=== PATIENT | female | born 1960 | race African-American/Black ===

== ENCOUNTER 2019-03-02 12:18 | Inpatient (IN) | payer OTHER, BC ==
[~2019-03-02] VITALS: Ht 160 cm; Wt 61.1 kg
--- NOTE | ~2019-03-02 | EKG ---
[facility] [place] [address] ELECTROCARDIOGRAM REPORT Name: INOCENCIO CERDA [facility] [id number] Admission: 03/02/19 Attend Phys: Mauricio Miner DO Discharge: Date of : 58 Report #: [id number] THIS REPORT FOR: //name// [facility] Test Date: 2019-03-02 Test Time: 16:15:30 Pat Name: INOCENCIO CERDA Department: Room: [facility] B Gender: F Rolling Machine Tender: Jesika RDZ : 1960 Requested By: Ian Patton Order Number: [id number] MD: Measurements Intervals [place] Rate: 64 P: 83 [place]: 197 QRS: 67 QRSD: 90 T: 52 QT: 414 QTc: 427 Interpretive Statements Sinus rhythm Consider left ventricular hypertrophy No previous ECG available for comparison [email or web address] By: [id number] 161 Sylvia Ward MD /EPI
[2019-03-02 12:19] VITALS: BP 147/84
[2019-03-02 12:50] LABS: ABSOLUTE NEUTROPHILS 2.2 thou/uL (1.4-8.2); BASOPHILS 0.9 % (0.0-2.0); EOSINOPHILS 2.3 % (0.0-3.0); HEMATOCRIT 37.6 % (37.0-47.0); HEMOGLOBIN 12.3 gm/dL (12.0-15.0); LYMPHOCYTES 40.9 % (24.0-44.0); MCH 32.1 pg (26.0-34.0); MCHC 32.7 g/dL (28.0-37.0); MCV 98.3 fL (80.0-100.0); MONOCYTES 10.6 % (1.0-8.0); PLATELET COUNT 208 thou/uL (150-400); POLYS 45.3 % (36.0-66.0); RBC 3.83 mil/uL (4.20-5.00); RDW 13.4 % (10.5-14.5); WBC 4.8 thou/uL (4.0-11.0)
[2019-03-02] MEDS ORDERED: ACETAMINOPHEN325 MG PO (12:55)
[2019-03-02] MEDS ORDERED: AMLODIPINE BESY10 MG PO (12:56)
[2019-03-02] MEDS ORDERED: CALCIUM500 MG PO (12:57)
[2019-03-02] MEDS ORDERED: NAMENDA 10 MG T10 MG PO (12:58)
[2019-03-02] MEDS ORDERED: VITAMIN D32000 UNIT PO (12:58)
[2019-03-02] MEDS ORDERED: ARICEPT10 M1 PO (12:58)
[2019-03-02] MEDS ORDERED: PRINIVIL10 MG PO (12:58)
[2019-03-02 13:01] LABS: ANION GAP 7 mmol/L (7-16); BUN 13 mg/dL (7-18); CALCIUM 9.8 mg/dL (8.5-10.1); CHLORIDE 107 mmol/L (98-107); CO2 30 mmol/L (21-32); CREATININE 1.2 mg/dL (0.6-1.0); GLUCOSE 89 mg/dL (74-106); POTASSIUM 3.7 mmol/L (3.5-5.1); SODIUM 144 mmol/L (136-145)
[2019-03-02 13:03] LABS: URINE BILIRUBIN NEGATIVE (Negative); URINE BLOOD NEGATIVE (Negative); URINE CLARITY CLEAR; URINE COLOR YELLOW; URINE GLUCOSE-RANDOM* NEGATIVE (Negative); URINE KETONES NEGATIVE (Negative); URINE LEUKOCYTES-REFLEX NEGATIVE (Negative); URINE NITRITE-REFLEX NEGATIVE (Negative); URINE PROTEIN (DIPSTICK) NEGATIVE (Negative); URINE SPECIFIC GRAVITY 1.015 (1.005-1.035); URINE UROBILINOGEN 0.2 E.U./dl (0.2-1.0)
[2019-03-02 13:11] LABS: ALBUMIN 3.9 g/dL (3.4-5.0); MAGNESIUM 2.2 mg/dL (1.8-2.4); SGOT 16 U/L (15-37); SGPT 21 U/L (30-65); TOTAL BILIRUBIN 0.8 mg/dL (<0.1-1.0); TOTAL PROTEIN 7.6 g/dL (6.4-8.2); TROPONIN-I <0.06 ng/mL (<0.06)
[2019-03-02 13:15] LABS: AMP/METHAMP Negative (Negative); BARBITURATES Negative (Negative); BENZODIAZEPINES Negative (Negative); COCAINE Negative (Negative); METHADONE Negative (Negative); OPIATES Negative (Negative); PCP Negative (Negative)
[2019-03-02 15:12] VITALS: BP 146/101
--- NOTE | 2019-03-02 17:49 | NUR ---
BLACK FEMALE ARRIVED ON THE UNIT IN W/C, STABLE. PT. IS NOT TALKING, BUT OCCASIONALLY WITH ONE WORK ANSWERS. SHE IS HERE FROM [facility]. SHE HAS DEMENTIA AND HAS LIVED IN [facility] FOR SEVERAL YEARS. SHE DOES NOT SPEAK MUCH. ONLY A SINGLE WORD HERE OR THERE. HER DPOA, YUKI AGUAYO, WAS CALLED. SHE IS A FAMILY FRIEND AND STATES SHE HAS KNOWN THE PATIENT FOR MANY YEARS. YUKI PROVIDED MUCH OF THE INFORMATION. FROM TIME TO TIME SHE WILL STRIKE OUT AT OTHER PATIENTS, UNPROVOKED. SHE IS COMBATIVE AT TIMES WITH STAFF. YUKI STATED SHE IS "PRE-DIABETIC", AND HAS HTN AND CHRONIC KIDNEY DISEASE. SINCE BEING ON THE UNIT SHE HAS WANDERED AROUND AIMLESSLY. DR. KAPOOR AND PINA Laird BOTH EXAMINED THE PATIENT. SHE IS HARD TO MEDICATE SHE WILL SPIT OUT HER MEDICATIONS. HER PRIMARY PHYSICIAN IS DR. JIMMY EG AT [phone]. SHE HAS A SON AND A BROTHER, BUT BOTH HAVE NOT BEEN INVOLVED IN HER CARE.
[2019-03-02 19:42] VITALS: BP 162/82
--- NOTE | 2019-03-03 02:07 | NUR ---
Care assumed of patient at 1915: Patient sitting in dayroom at start of shift. Patient isolative and sitting to self. Nurse attempted to speak with patient. Patient looked at nurse with perplexed look initially. Declined to answer any questions. Patient offered a snack in which she verbalized "yes" that she wanted one. Patient took HS medication without difficulty. Cooperative with physical assessment. No aggression or agitation shown. Patient then kept retiring to her room but stood over roomate instead of laying in her bed. Patient disoriented as to which bed was hers. Nurse then started to speak to patient in which she verbalized that she was tired and wanted to go to bed. Patient required simple one step directions repeated several times to her. Patient had much difficulty understanding nurse. It took approximately 10 minutes for patient to walk to her bed then lay down in her bed. Once patient did, she was able to fall asleep quickly and has been sleeping since. Patient is able to verbalize immediate needs/wants as she did so this evening.
[2019-03-03 08:21] VITALS: BP 149/87
--- NOTE | 2019-03-03 09:03 | NUR ---
PT WONDERS AROUND UNIT, INTRUSIVE WITH OTHER STAFF AND RESIDENTS. PT DIDN'T SPEAK MUCH. PT DID TAKE MEDS WITH VERBAL COACHING. PT LAUGHED AT TV AND OTHER STAFF MEMBERS. ASKED PT IF LIGHT IN DINING ROOM IS TOO BRIGHT SHE STATED YES.
[2019-03-03 09:40] VITALS: BP 149/89
--- NOTE | 2019-03-03 10:25 | NUR ---
ADM VIT D MED PT HELD MED IN HAND AND DIDN'T TAKE HERSELF, HAD TO PUT MEDS BACK IN CUP AND PUT IN HER MOUTH AND PT TOOK WATER WITH IT.
--- NOTE | 2019-03-03 12:59 | EKG ---
[place] [address] [facility] [place] [address] ELECTROCARDIOGRAM REPORT Name: INOCENCIO CERDA Room #: 523A-A ADM IN M.R.#: [id number] Admission: 03/02/19 Attend Phys: Mauricio Miner DO Discharge: Date of : 58 Report #: [id number] THIS REPORT FOR: //name// [facility] ED Test Date: 2019-03-02 Test Time: 12:52:01 Pat Name: INOCENCIO CERDA Department: Room: [facility] Gender: F Dental Chairside Assistant: . : 1960 Requested By: Ian Patton Order Number: [id number] MD: Ravindra Torres Measurements Intervals [place] Rate: 71 P: 85 VT: 197 QRS: 79 QRSD: 94 T: 52 QT: 406 QTc: 442 Interpretive Statements Sinus rhythm Poor R wave progression No previous ECG available for comparison Electronically Signed On 03-03-2019 12:59:14 CREDIT REPRESENTATIVE by Ravindra Torres [email or web address] <ELECTRONICALLY SIGNED> By: Ravindra Torres MD, [facility] 03/03/19 1259 1252 1252 Ravindra Torres MD, FACC /EPI
--- NOTE | 2019-03-03 13:03 | EKG ---
[facility] [address] [place] [address] ELECTROCARDIOGRAM REPORT Name: INOCENCIO CERDA Room #: 523A-A ADM IN M.R.#: [id number] Admission: 03/02/19 Attend Phys: Mauricio Miner DO Discharge: Date of : 58 Report #: [id number] THIS REPORT FOR: //name// [facility] Test Date: 2019-03-02 Test Time: 16:15:30 Pat Name: INOCENCIO CERDA Department: Room: [facility] B Gender: F Pipeline Welder: Jesika RDZ : 1960 Requested By: Ian Patton Order Number: [id number] MD: Ravindra Torres Measurements Intervals [place] Rate: 64 P: 83 [place]: 197 QRS: 67 QRSD: 90 T: 52 QT: 414 QTc: 427 Interpretive Statements Sinus rhythm Consider left ventricular hypertrophy No previous ECG available for comparison Electronically Signed On 03-03-2019 13:03:21 ADDICTIONS RECOVERY SPECIALIST by Ravindra Torres [email or web address] <ELECTRONICALLY SIGNED> By: Ravindra Torres MD, [facility] 03/03/19 1303 1615 1615 Ravindra Torres MD, FACC /EPI
--- NOTE | 2019-03-03 14:01 | NUR ---
PT HAD INCONT. OF URINE. HAD TO HELP PT BACK TO ROOM AND PROMPT HER TO SIT ON TOILET. PT BRIEF WAS INCON. PT ALSO HAD SMALL BM. PT BRIEF CHANGED AND NEW PANTS ON. PT WAS DANCING EARLIER IN DINING ROOM TO MUSIC.
--- NOTE | 2019-03-03 15:47 | NUR ---
LEENA contacted pt's MELLISSA Brown. No answer. Lft msg asking for a return call. SW team will continue to follow pt during her stay on this unit.
[2019-03-03 19:30] VITALS: BP 108/73
[2019-03-03 20:06] VITALS: BP 108/73
--- NOTE | 2019-03-04 01:30 | NUR ---
PATIENT WAS UP SITTING IN DINING ROOM TONIGHT. PATIENT IS QUIET AND ANSWERED YES AND NO QUESTIONS WHEN ASKED. OTHER TIMES SHE JUST STARED. PATIENT IS INCONTINENT AND HAD BM WHILE SITTING IN DINING ROOM. SHE DOES AMBULATE AND IS STEADY ON HER FEET. PATIENT DENIES PAIN. PATIENT TOOK HER MEDS WHOLE TONIGHT WITHOUT ISSUE. PATIENT COOPERATIVE. SHE IS ASSIST X 1 FOR CARES. PATIENT DID NOT UNDERSTAND SIMPLE COMMANDS FOR ADL'S SUCH TAKE PANTS DOWN OR OFF. PATIENT HAD TO BE ASSISTED WITH ADL'S.
[2019-03-04 07:51] VITALS: BP 112/85
[2019-03-04 08:00] VITALS: BP 112/85
--- NOTE | 2019-03-04 09:00 | NUR ---
PT SITTING IN DINING ROOM EATING BREAKFAST. PT ABLE TO TAKE MEDS WHOLE WITH MED CUP HELD UP TO MOUTH. PT UNDERSTANDS WHAT STAFF IS SAYING AND LAUGHS OR SAYS YEAH. PT LIKES TO DANCE TO MUSIC. PT IS INCON OF URINE OR STOOL AND NEEDS ENCOURAGED FOR ADL'S.
[2019-03-04 19:47] VITALS: BP 115/84
--- NOTE | 2019-03-05 00:39 | NUR ---
PATIENT ALERT AND ORINENTED. PATIENT IS ABLE TO ANSWER YES/NO QUESTIONS. PATIENT HAD A FLAT AFFECT, POOR EYE CONTACT, FAIR GROOMING AND HYGIENE. PATIENT WAS CALM AND COOPERATIVE WITH MEDS AND CARE. PATIENT IN BED ASLEEP AT THIS TIME BREATHING REGULAR AND UNLABOURED.
[2019-03-05 09:26] VITALS: BP 116/86
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
[2019-03-05 20:26] VITALS: BP 95/61
--- NOTE | 2019-03-06 01:49 | NUR ---
ASSUMED CARE FROM DAY SHIFT PT SITTING WATCHING TV IN DAYROOM, CALM COOPERATIVE , NON VERBAL WHICH ATTEMPTED TO TALK TO PT. PT WAS WILLING TO TAKE PO HS MEDICATIONS AND ATE HS SNACK. PT THEN WALKED BACK TO ROOM AND CLIMB INTO BED AND FEL ASLEEP. BED ALARM PLACED ON FOR SAFETY, FREQ CHECKS PER PROTOCOL, WILL CONINUTE WITH CURRENT PLAN OF CARE AND WILL REPORT CHANGES OR ABNORMAL FINDINGS.
[2019-03-06 09:23] VITALS: BP 108/76
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
--- NOTE | 2019-03-06 11:42 | NUR ---
LEENA received a call from pt's DPANKUSH Brown who said she works nights so that is why she has not been in touch. LEENA provided Stephanie an update including that pt was due to return either Wednesday or Wednesday. She said she personally has never known pt to be aggressive, and is glad she will be returning home. LEENA contacted the [facility] and spoke with Teresa. She said Katie arranges discharges. She asked LEENA to fax updates to [phone]. LEENA faxed updates. LEENA team will follow pt during her stay on this unit.
--- NOTE | 2019-03-06 15:54 | NUR ---
LEENA spoke with Katie who said they can transport pt for discharge on 03/08/2019 at 1300. She asked that LEENA fax a signed medication list on 03/07 so she can have pt's haldol filled before pt arrives. LEENA team will continue to follow pt during her stay on this unit.
--- NOTE | 2019-03-06 19:19 | NUR ---
Up ambulating around unit without s/o distress. No verbalizations, behaviors suggestive of SI/HI. Occassionally states a few words but typically does not respond to questions. Alerts to name. Breath sounds clear t/o, bilaterally equal. Reg HR auscultated. Color pink with brisk capillary refill and palpable peripheral pulses. Active bowel sounds over soft, flat abdomen. White flaky rash over face with one circular 2 cm lesion below R ear similar to ringworm but without any erythema. 1830 Eating with assistance of DYE BECK REEL OPERATOR mostly d/t she becomes distracted and loses focus. Took meds crushed in pudding without difficulty. Pictures taken of rash per request of Dr. Miner who consulted with wound physician. Rash cleaned with NS. Clotrimazole applied.
[2019-03-06 19:50] VITALS: BP 127/83
--- NOTE | 2019-03-07 04:03 | NUR ---
ASSUMED CARE OF THIS PATIENT AR 1900 FOR THE ORTHOPEDIC NURSE PRACTITIONER. SHE HAS BEEN IN DAYROOM WITH PEERS, SOMETIMES PACING ABOUT, BUT NOT IN AN AGITATED MANNER. MEDS WERE TAKEN CRUSHED. NO AGITATION OR AGGRESSIVE BEHAVIORS THIS SHIFT. COOPERATIVE WITH ASSESSMENT PROCESS. WILL ANSWER CLOSED ENDED QUESTIONS. CO C/O. NO APPARENT DISTRESS. WILL CONTINUE TO MONITOR
--- NOTE | 2019-03-07 12:08 | NUR ---
AT 0710 ASSUMED CARE OF PATIENT ON 03/07/19. PATIENT OBSERVED IN DAYROOM SITTING ON COUCH WITH EYES CLOSED. AT 0730 BLOOD SUGAR 98. DENIES PAIN, WHEN ASKED ABOUT PAIN PATIENT STATES"NO". PATIENT DOES NOT ANSWER ANY OTHER QUESTIONS CONTINUES TO STARE AT NUTRITION TECH. AT 0800 PATIENT WANDERING THE HALLS THEN SITS AT TABLE FOR BREAKFAST. MEDS TAKEN CRUSHED IN PUDDING. FACE CLEANED WITH WASHCLOTH THEN OINTMENT APPLIED TO FACE AND FOREHEAD. PATIENT SITTING ON COUCH WATCHING TV AT THIS TIME.
--- NOTE | 2019-03-07 12:27 | NUR ---
LEENA faxed a signed med sheet to Katie with the [facility]. [facility]EENA team will continue to follow pt during her stay.
[2019-03-07 15:07] VITALS: BP 153/93
[2019-03-07 19:55] VITALS: BP 97/60
--- NOTE | 2019-03-08 03:18 | NUR ---
ASSUMED CARE OF THIS PATIENT AT 1900. CONTINUES TO PACE CONTINUALLY. WILL ANSWER YES/NO QUESTIONS, BUT UNABLE TO CARRY ON A CONVERSATION. COMPLIANT WITH ALL MEDS AND CARES. NO APPARENT DISTRESS. NO C/O. WILL CONTINUE TO MONITOR
--- NOTE | 2019-03-08 07:30 | NUR ---
ASSUMED CARE OF PATIENT THIS AM. PATIENT AWAKE AND WALKING IN THE MILEU. PATIENTS AFFECT FLAT. PATIENT AMBULATES WITHOUT ASSISTANCE. PATIENT TAKES MEDICATIONS CRUSHED IN APPLESAUCE. PATIENT DENIES PAIN. PATIENT CALM AND COOPERATIVE. PATIENTS ASSESSMENT SHOWS CLEAR BREATH SOUNDS, ACTIVE BOWEL SOUNDS, AND S1 S2 HEARD FAINTLY.
[2019-03-08 08:00] VITALS: BP 100/79
[2019-03-08 08:54] VITALS: BP 100/79
[2019-03-08 09:26] VITALS: BP 100/79
[2019-03-08] MEDS ORDERED: HALOPERIDOL 1 MG1 MG PO (12:50)
[2019-03-08] MEDS ORDERED: LISINOPRIL10 MG PO (12:50)
[2019-03-08] MEDS ORDERED: VITAMIN D325 MCG PO (12:53)
[2019-03-08] MEDS ORDERED: CLOTRIMAZOLE-BE15 GM TOP (12:53)
--- NOTE | 2019-03-08 13:30 | NUR ---
PATIENT DISCHARGED AT 1330. PATIENT TAKEN TO [facility] VIA WHEELCHAIR. PATIENTS BELONGINGS AND DISCHARGE PAPERWORK SENT WITH PLANOGRAPH OPERATOR. REPORT CALLED TO [facility] PRIOR TO TRANSPORT. PATIENT STABLE AND AMBULATED ONTO THE BUS WITH ENCOURAGEMENT.
--- NOTE | 2019-03-08 14:53 | NUR ---
LEENA D/C note LEENA faxed discharge documentation to Katie with the [facility] at [phone]. No other needs for SW team to address at this time.
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
== END 2019-03-08 13:30 | DRG 884 ==
LOC: ER 12:18 → SBH 15:10
PROVIDERS: Emergency Medicine; ADMIT Psychiatry & Neurology Psychiatry
DX: F01.51 Vascular dementia, unspecified severity, with behavioral disturbance (principal); N17.9 Acute kidney failure, unspecified; N18.9 Chronic kidney disease, unspecified; Z91.040 Latex allergy status; Z79.899 Other long term (current) drug therapy; I10 Essential (primary) hypertension
CPT/HCPCS: 10880